=== PATIENT | male | born 1970 ===

== ENCOUNTER 2017-06-07 07:23 | Emergency (ER) | payer OTHER ==
[2017-06-07 07:35] VITALS: BP 125/82
--- NOTE | 2017-06-07 09:13 | XRay Report ---
XRAY LEFT KNEE 3 VIEWS: 06/07/17 07:23:00 CLINICAL: Pain. FINDINGS: No fracture or dislocation. Moderate osteoarthritis. Mild narrowing of the medial and lateral joint spaces and the patellofemoral joint. Large medial osteophytes and smaller lateral and patellofemoral osteophytes. No joint effusion. Nonspecific anterior subcutaneous soft tissue edema. No soft tissue air or foreign body. IMPRESSION: Osteoarthritis.
== END 2017-06-07 08:01 | disposition left against medical advice (07) ==
LOC: ED 07:23
DX: M25.562 Pain in left knee (principal); Z53.21 Procedure and treatment not carried out due to patient leaving prior to being seen by health care provider